=== PATIENT | female | born 1965 | race Caucasian/White ===

== ENCOUNTER 2016-12-24 16:58 | Emergency (ER) | payer OTHER ==
[~2016-12-24] VITALS: Ht 157.5 cm; Wt 60.9 kg
[2016-12-24 17:01] VITALS: Ht 157.5 cm; Wt 60.9 kg
[2016-12-24] MEDS ORDERED: IBUPROFEN 600 MG TAB PO ONE (17:30)
[2016-12-24] MEDS ORDERED: IBUP-1542 PO (17:53)
--- NOTE | 2016-12-24 17:59 | ERD ---
ER Documentation Chief Complaint Chief Complaint Complains of right wrist pain x 3 days after gym exercise HPI 51-year-old female complaining of right wrist pain 3 days. Patient stated that she was seen a exercise machine at the gym 3 days ago. She was applying a lot of pressure on her right wrist doing the exercise. She did not have any sudden onset pain. Patient stated that she did feel slight irritation of the right wrist immediately after exercise. The pain has become worse the last several days. Her right hand is now swollen. She was wearing a Velcro wrist brace the last 2 days, but felt that it did not help. She took ibuprofen at home for pain, last dose was yesterday. She has history of hypertension, high cholesterol, and arthritis. Denies any other medical conditions. Denies fever or chills. She is right-hand dominant. ROS All systems reviewed and are negative except as per history of present illness. Medications Home Meds Active Scripts Ibuprofen* (Motrin*) 600 Mg Tab, 600 MG PO Q6H Y for PAIN AND OR ELEVATED TEMP, #30 TAB Prov:LYNSEY SIMMS SALES [employer]ERK [employer] 12/24/16 Allergies Allergies: Coded Allergies: No Known Allergy (Unverified , 12/24/16) PMhx/Soc Medical and Surgical Hx: pt denies Surgical Hx Hx Neurological Disorder: No Hx Respiratory Disorders: No Hx Cardiac Disorders: Yes (HTN/HYPERLIPIDEMIA) Hx Psychiatric Problems: No Hx Miscellaneous Medical Probl: No Hx Alcohol Use: No Hx Substance Use: No Hx Tobacco Use: No Smoking Status: Never smoker Physical Exam Vitals Vital Signs Date Time Temp Pulse Resp B/P Pulse Ox O2 Delivery O2 Flow Rate FiO2 12/24/16 17:01 99.4 87 20 141/99 97 Physical Exam General: Well-developed, well-nourished, conscious and coherent, in no distress Skin: Warm and dry without rash, good texture and turgor Head: Normocephalic without evidence of trauma Eyes: Sclera and conjunctivae normal; pupils equal, round, and reactive to light; extraocular movements are intact Chest: Normal AP diameter. Good expansion without retractions. Nontender. Lungs are clear to auscultate bilaterally with good tidal volume Heart: Regular rate and rhythm. No murmur, rub, or gallops heard Extremities: The fingers of her right hand are swollen. Diffuse tenderness of the right wrist. Limited range of motion of right wrist due to pain. Full range of motion and other joints. Good strength bilaterally. No clubbing, cyanosis, or edema. Peripheral pulses are intact. Sensation intact Neuro: Alert and oriented 4, GCS 15. Cranial nerves grossly intact. Motor and sensory exams nonfocal. Moves all extremities. Speech clear. Gait normal Results 24 hrs Current Medications Medications (Trade) Dose Ordered Sig/Murray Route PRN Reason Start Time Stop Time Status Last Admin Dose Admin Ibuprofen (Motrin) 600 mg ONCE ONCE PO 12/24/16 17:30 12/24/16 17:31 DC 12/24/16 17:33 PROCEDURE: XR Right Wrist. CLINICAL INDICATION: Right wrist pain. TECHNIQUE: Four views. Frontal, lateral, oblique, and scaphoid view. COMPARISON: No prior studies are available for comparison. FINDINGS: There is no fracture or dislocation. The soft tissues are normal. Articular surfaces are intact. There is no lytic or blastic lesion. There is no radiopaque foreign body. IMPRESSION: 1. Normal images of the right wrist. RPTAT: QQ .Evert Biggs MD, MD Date Time Electronically viewed and signed by .Evert Biggs MD, MD on 12/24/2016 18:51 .R/ CC: LYNSEY SIMMS SALES CL[employer] Procedures/MDM Well-appearing 51-year-old female complaining of right wrist pain and swelling after exercise. X-ray of the right wrist was obtained, was negative for fractures or dislocations. I think likely patient has sustained a sprain of her right wrist. Likely the swelling of the fingers is positional. The area of injury was immobilized with a Velcro wrist splint and a sling. Patient was noted to be comfortable and neurovascularly intact both before and after the immobilization. Patient appears well, stable for discharge and outpatient management. Medical decision making shared with patient and family. Education provided to patient and family. Patient and family expressed understanding of the plan. Medications on discharge: Ibuprofen. Follow-up: Primary care provider in 2-3 days or return to ED if worse. Disclaimer: Inadvertent spelling and grammatical errors are likely due to EHR/ dictation software use and do not reflect on the overall quality of patient care. Also, please note that the electronic time recorded on this note does not necessarily reflect the actual time of the patient encounter. Departure Diagnosis: Primary Impression: Right wrist sprain Encounter type: initial encounter Qualified Code: S63.501A - Sprain of right wrist, initial encounter Condition: Stable Patient Instructions: Wrist Sprain Referrals: [facility] YOU HAVE RECEIVED A MEDICAL SCREENING EXAM AND THE RESULTS INDICATE THAT YOU DO NOT HAVE A CONDITION THAT REQUIRES URGENT TREATMENT IN THE EMERGENCY DEPARTMENT. FURTHER EVALUATION AND TREATMENT OF YOUR CONDITION CAN WAIT UNTIL YOU ARE SEEN IN YOUR DOCTORS OFFICE WITHIN THE NEXT 1-2 DAYS. IT IS YOUR RESPONSIBILITY TO MAKE AN APPOINTMENT FOR FOLOW-UP CARE. IF YOU HAVE A PRIMARY DOCTOR --you should call your primary doctor and schedule an appointment IF YOU DO NOT HAVE A PRIMARY DOCTOR YOU CAN CALL OUR PHYSICIAN REFERRAL HOTLINE AT IF YOU CAN NOT AFFORD TO SEE A PHYSICIAN YOU CAN CHOSE FROM THE FOLLOWING [facility] [address] [facility]. [facility] [address] [facility] [facility] [address] [facility] [facility] [address] [facility]. [facility] [address] [facility]. [facility]. [address] Additional Instructions: Call your primary care doctor TOMORROW for an appointment during the next 2-3 days.See the doctor sooner or return here if your condition worsens before your appointment time. LYNSEY SIMMS. ARLYN Dec 24, 2016 17:59
--- NOTE | 2016-12-24 18:51 | RADRPT ---
PROCEDURE: XR Right Wrist. CLINICAL INDICATION: Right wrist pain. TECHNIQUE: Four views. Frontal, lateral, oblique, and scaphoid view. COMPARISON: No prior studies are available for comparison. FINDINGS: There is no fracture or dislocation. The soft tissues are normal. Articular surfaces are intact. There is no lytic or blastic lesion. There is no radiopaque foreign body. IMPRESSION: 1. Normal images of the right wrist. RPTAT: QQ .Evert Biggs MD, MD Date Time Electronically viewed and signed by .Evert Biggs MD, MD on 12/24/2016 18:51 .R/
== END 2016-12-24 19:21 | disposition home or self-care (01) ==
LOC: EDSEX 16:58 → FTE 16:58
DX: S63.501A Unspecified sprain of right wrist, initial encounter (principal); X50.9XXA Other and unspecified overexertion or strenuous movements or postures, initial encounter; Y92.9 Unspecified place or not applicable